=== PATIENT | male | born 1955 | race Caucasian/White ===

== ENCOUNTER 2021-03-12 12:04 | Day surgery (SDC) | payer MEDICARE ==
[~2021-03-12] VITALS: Ht 172.7 cm; Wt 66.4 kg
[2021-03-12] MEDS ORDERED: NIACIN500 M1 PO (12:29)
[2021-03-12] MEDS ORDERED: FLUTICASONE P15.8 ML NAS (12:29)
[2021-03-12] MEDS ORDERED: ALLEGRA ALLERG180 MG PO (12:30)
[2021-03-12] MEDS ORDERED: NEXIUM20 MG PO (12:30)
[2021-03-12] MEDS ORDERED: SAW PALMETTO500 MG PO (12:31)
[2021-03-12] MEDS ORDERED: FISH OIL 1,0001 EAC3 PO (12:31)
[2021-03-12] MEDS ORDERED: MULTIVITAMIN1 EACH PO (12:31)
[2021-03-12] MEDS ORDERED: LOW DOSE ASPIRI81 MG PO (12:31)
[2021-03-12] MEDS ORDERED: VITAMIN D250 MC1 PO (12:32)
--- NOTE | 2021-03-12 13:23 | NUR ---
03/12/21 1323 KATARINA PANTOJA 1319-PATIENT ARRIVED TO PACU. AWAKE AND ALERT. ON 2L 02 NC. PATIENT REPORTS FEELING SLIGHTLY LIGHT HEADED, BP 120/72. DENIES PAIN OR NAUSEA.
--- NOTE | 2021-03-13 13:48 | OR ---
[facility] [address] [place], [place] [address] Signed DATE OF OPERATION: 03/12/2021 SURGEON: Nestor Johnson MD PREOPERATIVE DIAGNOSIS: Persistent gastroesophageal reflux symptoms, some proximal cervical dysphagia. POSTOPERATIVE DIAGNOSES: 1. Edematous hypopharynx. 2. Hiatal hernia without evidence of Casper's esophagus or esophagitis, no stricture. 3. Proximal gastritis. PROCEDURE: Esophagogastroduodenoscopy with biopsy. ANESTHESIA: Intravenous sedation, fentanyl 100 mcg and Versed 3 mg. INDICATION: This 65-year-old white man is a patient of Dr. Jim Garcia in [place], [place]. He has had 10 years of reflux type symptoms for which he has taken PPI medication with generally good result. In the past few months, however, he has had increasing symptoms of "sore throat" and what sounds like spontaneous regurgitation. He has had a rather incomplete response to PPI medication. He underwent upper endoscopy by Dr. Garcia in [place], which did show stomach polyps. He needs to eat every 2 hours otherwise, he has difficulty keeping food down in the stomach well. He is admitted at this time to undergo upper endoscopy to better characterize his problem. The risks of bleeding, infection, and perforation were reviewed with him. He understands and wished to proceed. FINDINGS: Passage of a conventional upper endoscope was not readily possible due to what appeared to be edematous changes of the hypopharynx in the area of the vallecula. There were some prominent blood vessels there, uncertain if these represented vallecular varices probably not, but definitely were prominently present. A smaller scope was easily passed into the esophagus however. Esophagus itself showed no evidence of Casper's epithelium or chronic inflammation certainly no stricture or varices. There was a hiatal hernia to be sure. Proximal gastritis was noted. There were some polyps likely hyperplastic as had been demonstrated in the past. The antrum itself was normal. The pylorus was normal and the duodenum was normal. Biopsies were taken to assess for Electronically Signed By: NESTOR JOHNSON MD 03/13/21 1348 PATIENT NAME: CAMERON MIRANDA OPERATIVE REPORT DATE OF : 55 REPORT #: [id number] PHYSICIAN: NESTOR JOHNSON MD PCP: JIM GARCIA DO REPORT IS CONFIDENTIAL AND NOT TO BE RELEASED WITHOUT AUTHORIZATION [facility] [address] [place], [place] [address] Signed celiac disease as well however. DESCRIPTION OF PROCEDURE: The patient was brought to the endoscopy suite and placed in lateral decubitus position after undergoing topical lidocaine spray anesthesia. Intravenous sedation was induced to a point of slurred speech and nystagmus with full cardiopulmonary monitoring. A bite block was placed. An Olympus video upper endoscope was passed in the hypopharynx. The vallecula was rather prominent. Transient visualization of the vocal cords was noted. Attempts at passage of the conventional Olympus upper endoscope were unsuccessful with inadvertent intubation of the trachea at one point, though it certainly was not passed very far. Scope was withdrawn and a smaller older model scope was obtained which had a narrow diameter of the tip. A bite block was replaced and passage of the scope was without problem at that point, though it is noted that the vallecula was rather large and surrounding soft tissue was somewhat edematous. Examination of the esophagus showed it to be normal in appearance without sign of Casper's epithelium, stricture, neoplasm or even inflammation really. The scope was advanced into the stomach, which was insufflated with air. Rugal folds were normal. Antrum and pylorus were normal. Scope was passed in the duodenum, which was normal. Biopsies were obtained to assess for celiac disease. The scope was withdrawn and retroflexed view undertaken demonstrating a number of small hyperplastic appearing polyps, none of them worrisome for adenomatous change. Proximal stomach showed chronic gastritis. There was a hiatal hernia, which was relatively small in size. Biopsies were taken of the proximal stomach. This was for both DARIAN and pathologic testing. The scope was straightened and withdrawn to the distal esophagus and although, the mucosa was normal, biopsies were obtained nevertheless. The scope was withdrawn and the mid esophagus was biopsied as well. Further withdrawal of scope allowed for repeat visualization of the hypopharynx. There was no clear evidence of neoplasm or anything of that sort. The patient was then taken to the recovery room in good condition. CONCLUDING DIAGNOSES: 1. Hiatal hernia without clinical evidence of esophagitis, stricture, neoplasm, or Casper's epithelium. 2. Proximal gastritis. 3. Hypopharyngeal edema, uncertain etiology. PLAN: We will initiate Carafate 1 g p.o. q.i.d. He will continue with his Nexium. We will order a videoesophagram to assess the proximal esophagus as well as the motility of esophagus itself. We will see him back after that. Electronically Signed By: NESTOR JOHNSON MD 03/13/21 1348 PATIENT NAME: CAMERON MIRANDA OPERATIVE REPORT DATE OF : 55 REPORT #: [id number] PHYSICIAN: NESTOR JOHNSON MD PCP: JIM GARCIA DO REPORT IS CONFIDENTIAL AND NOT TO BE RELEASED WITHOUT AUTHORIZATION [place] [phone] Signed MD ARLET Her/MODL /[id number] cc: Jim Garcia DO Copies: JIM GARCIA DO ~ Electronically Signed By: NESTOR JOHNSON MD 03/13/21 1348 PATIENT NAME: CAMERON MIRANDA OPERATIVE REPORT DATE OF : 55 REPORT #: [id number] PHYSICIAN: NESTOR JOHNSON MD PCP: JIM GARCIA DO REPORT IS CONFIDENTIAL AND NOT TO BE RELEASED WITHOUT AUTHORIZATION
--- NOTE | 2021-03-16 14:54 | PATH ---
[facility] [address] [place], [place] [address] Signed SPECIMEN(S): A DUODENUM SPECIMEN(S): B PROXIMAL STOMACH SPECIMEN(S): C DISTAL ESOPHAGUS SPECIMEN(S): D MID ESOPHAGUS SPECIMEN SOURCE: A. DUODENUM B. PROXIMAL STOMACH C. DISTAL ESOPHAGUS D. MID ESOPHAGUS CLINICAL HISTORY: Colonoscopy with possible biopsies. Hiatal hernia, GERD. Postop: Hiatal hernia, proximal gastritis, pharyngeal edema. MICROSCOPIC DESCRIPTION: Histologic sections of all submitted blocks are examined by light microscopy. These findings, together with the gross examination, support the pathologic diagnosis. FINAL PATHOLOGIC DIAGNOSIS: A. Duodenum, biopsy: - Duodenal mucosa with no histopathologic abnormality. - Negative for increased intraepithelial lymphocytes or villous blunting. - Negative for dysplasia or malignancy. B. Stomach, proximal, biopsy: - Oxyntic mucosa with mild chronic, inactive gastritis. - Changes present as seen with proton pump inhibitor (PPI) therapy. - Negative for Helicobacter organisms on HE stain. - Negative for dysplasia or malignancy. C. Esophagus, distal, biopsy: - Squamous mucosa with minimal chronic inflammation. - Negative for intestinal metaplasia, dysplasia, or malignancy. D. Esophagus, mid, biopsy: - Squamous mucosa with minimal chronic inflammation. - Negative for increased intraepithelial eosinophils. - Negative for intestinal metaplasia, dysplasia, or malignancy. NAL:cml:C2NR GROSS DESCRIPTION: Four specimens are received in four containers, labeled `` Padna Miranda. A. The specimen, labeled " Panda Miranda, #1," and designated on the requisition PATIENT NAME: PANDA MIRANDA PATHOLOGY DATE OF : 55 REPORT #: [id number] PHYSICIAN: STALIN JAQUEZ PCP: JIM GARCIA DO REPORT IS CONFIDENTIAL AND NOT TO BE RELEASED WITHOUT AUTHORIZATION [facility] [address] [place], [place] [address] Signed "duodenum biopsy," biopsy is received in formalin and consists of two fuentes soft tissue fragment(s) that measure 0.3 and 0.3 cm in greatest dimension. The specimen is entirely submitted in cassette (A1). B. The specimen, labeled " Panda Miranda, #2," and designated on the requisition "proximal stomach biopsy," is received in formalin and consists of two fuentes soft tissue fragment(s) that measure 0.4 and 0.5 cm in greatest dimension. The specimen is entirely submitted in cassette (B1). C. The specimen, labeled " Panda Miranda, #3," and designated on the requisition "distal esophagus biopsy," is received in formalin and consists of one white-fuentes soft tissue fragment that measures 0.6 cm in greatest dimension. The specimen is entirely submitted in cassette (C1). D. The specimen, labeled " Panda Miranda, #4," and designated on the requisition "mid esophagus biopsy," is received in formalin and consists of two white-fuentes soft tissue fragment(s) that measure 0.3 and 0.3 cm in greatest dimension. The specimen is entirely submitted in cassette (D1). FB (under the direct supervision of a pathologist) The Gross Description was prepared using a voice recognition system. The report was reviewed for accuracy; however, sound-alike word errors, addition and/or deletions may occur. If there is any question about this report, please contact Client Services. PERFORMING LABORATORY: The technical component was performed by [employer], [address] [place] [id number] (Scientific Publications Editor: Oksana Dean MD; CLIA# [id number]). Professional interpretation was performed by [employer], [facility], [address] [place] [address] (CLIA# [id number]). Diagnostician: Geneva Sheffield MD Pathologist Electronically Signed 03/16/2021 Copies: ~ PATIENT NAME: PANDA MIRANDA PATHOLOGY DATE OF : 55 REPORT #: [id number] PHYSICIAN: [facility] PCP: JIM GARCIA DO REPORT IS CONFIDENTIAL AND NOT TO BE RELEASED WITHOUT AUTHORIZATION
== END 2021-03-12 14:05 | disposition home or self-care (01) ==
LOC: OPS 12:04 → DS 12:11 → OPS 13:00 → DS 13:00 → OPS 14:05
PROVIDERS: ATTEND Surgery
PROC: 0DB68ZX Excision of Stomach, Via Natural or Artificial Opening Endoscopic, Diagnostic (ICD-10-PCS; 2021-03-12)
PROC: 0DB28ZX Excision of Middle Esophagus, Via Natural or Artificial Opening Endoscopic, Diagnostic (ICD-10-PCS; 2021-03-12)
PROC: 0DB38ZX Excision of Lower Esophagus, Via Natural or Artificial Opening Endoscopic, Diagnostic (ICD-10-PCS; 2021-03-12)
PROC: 0DB98ZX Excision of Duodenum, Via Natural or Artificial Opening Endoscopic, Diagnostic (ICD-10-PCS; principal; 2021-03-12 13:00)
DX: K21.00 Gastro-esophageal reflux disease with esophagitis, without bleeding (principal); K44.9 Diaphragmatic hernia without obstruction or gangrene; K29.50 Unspecified chronic gastritis without bleeding; N40.1 Benign prostatic hyperplasia with lower urinary tract symptoms; N13.8 Other obstructive and reflux uropathy; R07.89 Other chest pain; Z80.0 Family history of malignant neoplasm of digestive organs; Z79.82 Long term (current) use of aspirin
CPT/HCPCS: 99153; G0500; J2250; J3010; J7121